=== PATIENT | female | born 1940 | race Caucasian/White ===

== ENCOUNTER 2017-08-22 20:07 | Emergency (ER) | payer MEDICARE, BC ==
[~2017-08-22] VITALS: Ht 165.1 cm; Wt 68.5 kg
[2017-08-22 20:12] VITALS: BP 137/82
[2017-08-22] MEDS ORDERED: cephalexin 500mg capsule PO ONE (20:30)
[2017-08-22] MEDS ORDERED: HYDROcodone/acetaminophen 10/325mg tab PO ONE (20:30)
[2017-08-22] MEDS ORDERED: TETanus/Pertussis (Acell)/Diphther VAC/PF (Tdap-Adult) 0.5ml syringe IM ONE (21:05)
[2017-08-22] MEDS ORDERED: LIDOcaine 1.5% w/epinephrine 1:200,000 5ml ampul IJ ONE (21:05)
[2017-08-22] MEDS ORDERED: PER10325T PO (22:19)
[2017-08-22] MEDS ORDERED: oxyCODONE/APAP 10/325mg tablet PO ONE (22:20)
[2017-08-22] MEDS ORDERED: CEPH500C5 PO (22:29)
== END 2017-08-22 22:33 | disposition home or self-care (01) ==
LOC: ER 20:08
DX: S02.2XXA Fracture of nasal bones, initial encounter for closed fracture (principal); Z79.899 Other long term (current) drug therapy; W19.XXXA Unspecified fall, initial encounter; Y93.41 Activity, dancing; Y92.89 Other specified places as the place of occurrence of the external cause; Y99.8 Other external cause status
CPT/HCPCS: 12011; 70486; 90471; 90715; 99284; A6449; J3490